=== PATIENT | male | born 1965 | race Caucasian/White ===

== ENCOUNTER 2019-08-12 11:45 | Emergency (ER) | payer BC ==
[2019-08-12 12:06] LABS: #Eosinphils 0.1 thou/uL (0.0-0.7); #Lymphocytes 2.9 thou/uL (1.20-3.40); #Monocytes 0.8 thou/uL (0.11-0.59); #Neutrophils 5.8 thou/uL (1.40-6.50); %Basophils 0.3 % (0.0-1.0); %Eosinophils 1.1 % (0.0-10.0); %Lymphocytes 29.8 % (21.0-51.0); %Monocytes 7.8 % (0.0-10.0); Hemoglobin 16.4 g/dL (14.0-18.0); Mean Corpuscular HGB CONC 34.1 g/dL (32.0-36.0); Mean Corpuscular Hemoglobin 28.7 pg (27.0-31.0); Mean Corpuscular Volume 84.1 fL (78.0-98.0); Mean Platelet Volume 8.3 fL (7.4-10.4); Platelet Count 244 thou/uL (130-400); RBC Distribution Width 11.9 % (11.5-14.5); Red Blood Cell (RBC) Count 5.71 mill/uL (4.70-6.10); White Blood Cell (WBC) Count 9.6 thou/uL (4.8-10.8)
--- NOTE | 2019-08-12 12:09 | CT ---
CT facial bones, noncontrast CLINICAL HISTORY: Pain, injury COMPARISON: None FINDINGS: Facial bones: No fracture. Facial soft tissues: Focal laceration of the right mental region. There is a prominent hematoma of th e lateral aspect of the right frontal scalp. Orbital contents: No acute abnormality. Paranasal sinuses: Retention cyst of right maxillary sinus IMPRESSION: Soft tissue abnormalities of the right face and scalp. No underlying displaced facial fracture.
--- NOTE | 2019-08-12 12:12 | CT ---
CT Brain WO Con: 08/12/2019 11:54 AM CLINICAL HISTORY: Trauma. COMPARISON: None. FINDINGS: Hemorrhage: None. Ventricular system: Normal in size and morphology for the patient's age. Cerebral parenchyma: Normal Midline shift: None. Mass: No mass effect. Calvarium: No displaced fracture. There is a prominent sized right frontal scalp hematoma. IMPRESSION: No acute intracranial abnormalities. Telephone call of findings placed at 1207 hours.
--- NOTE | 2019-08-12 12:13 | RAD ---
Exam: Chest one view HISTORY:Trauma Comparison: None FINDINGS: Lungs: No masses or consolidation. Cardiac silhouette: Normal size Pulmonary vessels: Normal Pleural Spaces: Clear Pneumothorax: None Osseous abnormalities: None of acuity. IMPRESSION: No focal consolidation.
--- NOTE | 2019-08-12 12:16 | CT ---
CT Cervical Spine WO Con Indication: Pain/Injury COMPARISON: None FINDINGS: Acute fracture/subluxation: None Spinal alignment: No acute malalignment. Vertebral body heights: Maintained. Cervical spine degenerative change: None of significance. IMPRESSION: No acute osseous abnormality.
[2019-08-12 12:28] LABS: ALT (SGPT) 25 U/L (8-55); AST (SGOT) 25 U/L (5-34); Albumin 4.8 g/dL (3.5-5.0); Alcohol Less than 10 mg/dL (Less than 10); Alkaline Phosphatase 66 U/L (40-110); Anion Gap 14 mmol/L (10-20); BUN (Urea Nitrogen) 16 mg/dL (8.4-25.7); Bilirubin, Total 0.8 mg/dL (0.2-1.2); Calc. Creatinine Clearance 0 mL/min (70-130); Calcium 10.1 mg/dL (7.8-10.44); Carbon Dioxide 25 mmol/L (22-29); Chloride 101 mmol/L (98-107); Estimated GFR-MDRD 72; Globulin 3.2 g/dL (2.4-3.5); Glucose 104 mg/dL (70-105); Potassium 3.6 mmol/L (3.5-5.1); Sodium 136 mmol/L (136-145)
[2019-08-12] MEDS ORDERED: Lidocaine 2% PF 5 ML VIAL ONE (12:35)
[2019-08-12] MEDS ORDERED: Ketorolac Tromethamine 30 MG/ML VIAL ONE (13:51)
[2019-08-12] MEDS ORDERED: Adacel (T-DAP) 0.5 ML SYRINGE ONE (13:51)
[2019-08-12] MEDS ORDERED: Acetaminophen 500 MG TAB ONE (13:51)
--- NOTE | 2019-08-13 14:07 | EKG ---
Test Reason : Blood Pressure : / mmHG Vent. Rate : 080 BPM Atrial Rate : 080 BPM P-R Int : 150 ms QRS Dur : 106 ms QT Int : 384 ms P-R-T Axes : 046 -43 051 degrees QTc Int : 442 ms Normal sinus rhythm Left axis deviation Moderate voltage criteria for LVH, may be normal variant Abnormal ECG Confirmed by GRACE CASANOVA ([id number]), desk editor RACHEL KNIGHT ([id number] on 08/13/2019 2:07:00 PM Referred By: Confirmed By:GRACE CASANOVA
== END 2019-08-12 15:15 | disposition home or self-care (01) ==
LOC: ERS 11:45
DX: S06.0X9A Concussion with loss of consciousness of unspecified duration, initial encounter (principal); S01.81XA Laceration without foreign body of other part of head, initial encounter; I10 Essential (primary) hypertension; V86.99XA Unspecified occupant of other special all-terrain or other off-road motor vehicle injured in nontraffic accident, initial encounter
CPT/HCPCS: 12013; 36415; 70450; 70486; 71045; 72125; 80053; 80307; 83605; 85025; 90471; 90715; 93005; 96361; 96365; 96375; J0690; J1885; J2001

== ENCOUNTER 2023-09-22 06:15 | Day surgery (SDC) | payer BC ==
[2023-09-21 16:23] VITALS: BMI 36.9
[~2023-09-22 06:15] MED LIST: EPINEPHrine 0.3 MG in Ophthalmic Irrigation Solution 500 ML IRR SCH
[2023-09-22] MEDS ORDERED: Cyclopentolate W/ Phenylephrin 5 ML BOT ONE (06:30)
[2023-09-22] MEDS ORDERED: PROPOFOL 20 ML ONE (08:35)
[2023-09-22] MEDS ORDERED: CEFAZOLIN 1 GM VIAL ONE (08:43)
[2023-09-22] MEDS ORDERED: Maxitrol 0.1% Opth Oint 3.5 GM TUBE ONE (08:43)
[2023-09-22] MEDS ORDERED: Bupivacaine 0.75% 10 ML VIAL ONE (08:43)
[2023-09-22] MEDS ORDERED: Lidocaine 1% PF 5 ML VIAL ONE (08:43)
[2023-09-22] MEDS ORDERED: Triamcinolone 40 MG/ML VIAL ONE (08:43)
[2023-09-22] MEDS ORDERED: Lidocaine 4% PF 5 ML AMP ONE (08:43)
== END 2023-09-22 10:00 | disposition home or self-care (01) ==
LOC: SDC 06:15
PROVIDERS: ATTEND Ophthalmology Retina Specialist
PROC: 08T43ZZ Resection of Right Vitreous, Percutaneous Approach (ICD-10-PCS; principal; 2023-09-22)
DX: H43.11 Vitreous hemorrhage, right eye (principal); H33.311 Horseshoe tear of retina without detachment, right eye
CPT/HCPCS: J0171; J0690; J2704; J3301; J3490